=== PATIENT | male | born 1960 | race Caucasian/White ===

== ENCOUNTER 2017-10-16 06:16 | Inpatient (IN) ==
[2017-10-16 07:06] LABS: Hematocrit 38.1 % (39.0-51.0); Hemoglobin 13.5 gm/dL (13.0-17.0); Mean Corpuscular HGB Conc 35.6 % (32.0-36.0); Mean Corpuscular Hemoglobin 31.4 pg (27.0-34.0); Mean Corpuscular Volume 88.4 fL (80.0-100.0); Mean Platelet Volume 7.4 fL (7.0-11.0); Platelet Count 249 th/mm3 (150-450); Red Cell Distribution Width 12.8 % (11.6-17.2)
[2017-10-16 07:45] LABS: Alanine Aminotransferase 37 U/L (12-78); Alkaline Phosphatase 77 U/L (45-117); Anion Gap 13 meq/L (5-15); Aspartate Aminotransferase 22 U/L (15-37); Blood Urea Nitrogen 13 mg/dL (7-18); Calcium 8.4 mg/dL (8.5-10.1); Carbon Dioxide 21.9 meq/L (21.0-32.0); Chloride 98 meq/L (98-107); Glomerular Filtration Rate Greater Than 89 mL/min (>89); Glucose,Random 147 mg/dL (74-106); Sodium 133 meq/L (136-145); Total Protein 7.4 g/dL (6.4-8.2)
[2017-10-16 07:56] LABS: Potassium 2.9 meq/L (3.5-5.1)
[2017-10-16] MEDS ORDERED: Vancomycin Inj 1,000 MG in Sodium Chlor 0.9% Inj 250 ML IV.SIG ONE (08:35)
--- NOTE | 2017-10-16 08:40 | ED ---
HPI General Chief complaint: Skin/Abscess/Foreign Body Stated complaint: poss spider bite Time Seen by Provider: 10/16/17 08:18 History of Present Illness HPI narrative: this patient complains of pain and redness to his right leg. He was seen here 3 days ago for the same thing but it continues to worsen despite antibiotics. He has pain of moderate severity. He has been taking Keflex for 3 days. Pain is worse with movement. No alleviating factors. He is not sure if he has had any fever. Started to drain a bit of yellow fluid. It is spreading since he was seen before. Location: [facility] Severity: moderate Pain Consistency: constant Treatments prior to arrival: antibiotic Related Data Home Medications Medication Instructions Recorded Confirmed hydrocodone-acetaminophen [[place]] 1 tab PO Q4-6H PRN 10/13/17 10/16/17 labetalol 50 mg PO BID 10/13/17 10/16/17 melatonin 5 mg PO HS 10/13/17 10/16/17 milk thistle 200 mg PO DAILY 10/13/17 10/16/17 omeprazole 20 mg PO DAILY 10/13/17 10/16/17 amlodipine 10 mg PO DAILY 10/16/17 10/16/17 Previous Rx's Medication Instructions Recorded cephalexin 500 mg PO BID 7 Days #14 cap 10/13/17 Allergies Allergy/AdvReac Type Severity Reaction Status Date / Time No Known Allergies Allergy Verified 10/16/17 06:21 Review of Systems Except as stated in HPI: all other systems reviewed are negative PMFSH Medical History Medical History Cigarette smoker (Acute) Femur fracture (Acute) Femur fracture, left (Acute) GERD (gastroesophageal reflux disease) (Acute) HTN (hypertension) (Acute) Social History Social History Substance History: Past History Second Hand Smoke Exposure: Yes Smoking Status: Current every day smoker Tobacco Type: Cigarettes How Often Do You Have a Drink Containing Alcohol: 4 or more times a week Recent Travel in [facility] within the Last 8 Weeks: No Recent Out of Country Travel within the Last 8 Weeks: No Immunization History Tetanus Immunization: Unsure Hx Influenza Vaccine This Season: No Exam Narrative Exam Narrative: GENERAL: Well-nourished, well-developed patient in no apparent distress. SKIN: Focused skin assessment reveals no rash and nodules. Skin is Warm and dry. HEAD: Atraumatic. Normocephalic. EYES: Pupils equal and round. No scleral icterus. No injection or drainage. ENT: No nasal bleeding or discharge. Mucous membranes pink and moist. NECK: Trachea midline. No JVD. CARDIOVASCULAR: Regular rate and rhythm. No murmur appreciated. RESPIRATORY: No accessory muscle use. Clear to auscultation. Breath sounds equal bilaterally. GASTROINTESTINAL: Abdomen soft, non-tender, nondistended. Hepatic and splenic margins not palpable. MUSCULOSKELETAL: No obvious deformities. No clubbing. No cyanosis. No edema. He has erythema and warmth of the right leg distal to the knee on the medial aspect. Spreading toward the lateral side and has lymphangitis up toward the groin. There is an area of blistering with some yellow honey crusting. No active fluctuance or drainage. Good range of motion of the knee without discomfort. NEUROLOGICAL: Awake and alert. No obvious cranial nerve deficits. Motor grossly within normal limits. Normal speech. PSYCHIATRIC: Appropriate mood and affect; insight and judgment normal. Course Initial Documented Vital Signs Temperature 98.4 F 10/16/17 06:18 Pulse Rate 111 H 10/16/17 06:18 Respiratory Rate 18 10/16/17 06:18 Blood Pressure 136/86 10/16/17 06:18 Pulse Oximetry 99 10/16/17 06:18 Last Documented Vital Signs Temperature 98.5 F 10/16/17 11:30 Pulse Rate 97 H 10/16/17 11:30 Respiratory Rate 16 10/16/17 11:30 Blood Pressure 137/83 10/16/17 11:30 Pulse Oximetry 99 10/16/17 06:18 Medical Decision Making MDM Narrative Medical decision making narrative: I gave him 1 g IV vancomycin. I have ordered lab studies His infection is spreading and worsening despite oral antibiotics for 3 days. He will need inpatient admission for IV antibiotics to get a handle on this worsening infection as well as prevent transformation to septic knee joint. I do not have any clinical suspicion of septic joint at this time but he will be at risk to develop one if this does not get handled. Blood cultures were sent. Case reviewed with hospitalist who will admit for IV antibiotics. Patient does have some hyponatremia and hypokalemia. Differential Diagnosis Differential Diagnosis: Cellulitis, lymphangitis, septic knee Medical Records Medical records reviewed: Yes I reviewed the patient's medical records. Reviewed his visit from 3 days ago Lab Data Lab results reviewed: Yes I reviewed the patient's lab results. Result diagrams: 10/16/17 09:55 10/16/17 09:55 Lab Results 10/16/17 10/16/17 10/16/17 Range/Units 06:40 06:40 06:40 WBC 12.0 H (4.0-11.0) th/mm3 RBC 4.30 L (4.50-5.90) mil/mm3 Hgb 13.5 (13.0-17.0) gm/dL Hct 38.1 L (39.0-51.0) % MCV 88.4 (80.0-100.0) fL MCH 31.4 (27.0-34.0) pg MCHC 35.6 (32.0-36.0) % RDW 12.8 (11.6-17.2) % Plt Count 249 (150-450) th/mm3 MPV 7.4 (7.0-11.0) fL Neut % (Auto) (16.0-70.0) % Lymph % (Auto) (9.0-44.0) % [place] % (Auto) (0.0-8.0) % Eos % (Auto) (0.0-4.0) % Baso % (Auto) (0.0-2.0) % Neut # (Auto) (1.8-7.7) th/mm3 Lymph # (Auto) (1.0-4.8) th/mm3 [place] # (Auto) (0.0-0.9) th/mm3 Eos # (Auto) (0.0-0.4) th/mm3 Baso # (Auto) (0.0-0.2) th/mm3 WBC Differential Differential Comment Sodium 133 L (136-145) meq/L Potassium 2.9 L* (3.5-5.1) meq/L Chloride 98 (98-107) meq/L Carbon Dioxide 21.9 (21.0-32.0) meq/L Anion Gap 13 (5-15) meq/L BUN 13 (7-18) mg/dL Creatinine 0.86 (0.60-1.30) mg/dL Estimated GFR Greater than 89 (>89) mL/min Random Glucose 147 H (74-106) mg/dL Lactic Acid 1.2 (0.4-2.0) mmol/L Calcium 8.4 L (8.5-10.1) mg/dL Total Bilirubin 0.7 (0.2-1.0) mg/dL AST 22 (15-37) U/L ALT 37 (12-78) U/L Alkaline Phosphatase 77 (45-117) U/L Total Protein 7.4 (6.4-8.2) g/dL Albumin 3.0 L (3.4-5.0) g/dL 10/16/17 10/16/17 Range/Units 09:55 09:55 WBC 11.3 H (4.0-11.0) th/mm3 RBC 4.37 L (4.50-5.90) mil/mm3 Hgb 13.6 (13.0-17.0) gm/dL Hct 38.9 L (39.0-51.0) % MCV 89.0 (80.0-100.0) fL MCH 31.0 (27.0-34.0) pg MCHC 34.9 (32.0-36.0) % RDW 12.9 (11.6-17.2) % Plt Count 233 (150-450) th/mm3 MPV 7.9 (7.0-11.0) fL Neut % (Auto) 69.7 (16.0-70.0) % Lymph % (Auto) 17.0 (9.0-44.0) % [place] % (Auto) 12.1 H (0.0-8.0) % Eos % (Auto) 0.6 (0.0-4.0) % Baso % (Auto) 0.6 (0.0-2.0) % Neut # (Auto) 7.9 H (1.8-7.7) th/mm3 Lymph # (Auto) 1.9 (1.0-4.8) th/mm3 [place] # (Auto) 1.4 H (0.0-0.9) th/mm3 Eos # (Auto) 0.1 (0.0-0.4) th/mm3 Baso # (Auto) 0.1 (0.0-0.2) th/mm3 WBC Differential . Differential Comment Auto diff final Sodium 134 L (136-145) meq/L Potassium 3.0 L (3.5-5.1) meq/L Chloride 99 (98-107) meq/L Carbon Dioxide 23.3 (21.0-32.0) meq/L Anion Gap 12 (5-15) meq/L BUN 12 (7-18) mg/dL Creatinine 0.73 (0.60-1.30) mg/dL Estimated GFR Greater than 89 (>89) mL/min Random Glucose 109 H (74-106) mg/dL Lactic Acid (0.4-2.0) mmol/L Calcium 8.3 L (8.5-10.1) mg/dL Total Bilirubin (0.2-1.0) mg/dL AST (15-37) U/L ALT (12-78) U/L Alkaline Phosphatase (45-117) U/L Total Protein (6.4-8.2) g/dL Albumin (3.4-5.0) g/dL Discharge Plan Discharge Disposition Patient Disposition: 30 Still Patient Discharge Condition Condition: Stable Discharge Details Discharge Problem: Cellulitis Physicians Team ED Provider: Finesse Sanchez Primary Care Provider: Tete Buchanan Rxs /Orders / Referrals /Forms Prescriptions: No Action labetalol 50 mg PO BID RF: 0 omeprazole 20 mg PO DAILY RF: 0 melatonin 5 mg PO HS RF: 0 milk thistle 200 mg PO DAILY RF: 0 hydrocodone-acetaminophen [[place]] 5-325 mg Tablet 1 tab PO Q4-6H PRN (Reason: Pain) RF: 0 cephalexin 500 mg capsule 500 mg PO BID 7 Days Qty: 14 RF: 0 amlodipine 10 mg Tablet 10 mg PO DAILY RF: 0 Discharge Interventions Interventions: Vital Signs Last Done: 10/16/17 11:30 Status ED Status: With Doctor
[2017-10-16 10:34] LABS: Baso # (Auto) 0.1 th/mm3 (0.0-0.2); Baso % (Auto) 0.6 % (0.0-2.0); Eos # (Auto) 0.1 th/mm3 (0.0-0.4); Eos % (Auto) 0.6 % (0.0-4.0); Hematocrit 38.9 % (39.0-51.0); Hemoglobin 13.6 gm/dL (13.0-17.0); Lymph # (Auto) 1.9 th/mm3 (1.0-4.8); Mean Corpuscular HGB Conc 34.9 % (32.0-36.0); Mean Platelet Volume 7.9 fL (7.0-11.0); Mono # (Auto) 1.4 th/mm3 (0.0-0.9); Mono % (Auto) 12.1 % (0.0-8.0); Neut # (Auto) 7.9 th/mm3 (1.8-7.7); Neut % (Auto) 69.7 % (16.0-70.0); Platelet Count 233 th/mm3 (150-450); Red Blood Count 4.37 mil/mm3 (4.50-5.90); Red Cell Distribution Width 12.9 % (11.6-17.2); White Blood Count 11.3 th/mm3 (4.0-11.0)
[2017-10-16 11:12] LABS: Anion Gap 12 meq/L (5-15); Blood Urea Nitrogen 12 mg/dL (7-18); Calcium 8.3 mg/dL (8.5-10.1); Carbon Dioxide 23.3 meq/L (21.0-32.0); Chloride 99 meq/L (98-107); Glomerular Filtration Rate Greater Than 89 mL/min (>89); Glucose,Random 109 mg/dL (74-106); Sodium 134 meq/L (136-145)
[2017-10-16] MEDS ORDERED: Bisacodyl 10 MG Supp RECTAL PRN (12:06)
[2017-10-16] MEDS ORDERED: Acetaminophen 325 MG Tablet PO PRN (12:06)
[2017-10-16] MEDS ORDERED: Vancomycin Consult Pharmacy 1 EACH OTHER SCH (12:10)
[2017-10-16] MEDS: Sod Chloride 0.9% Inj 1,000 ML IV.CONT SCH ×2 (12:51→23:29)
[2017-10-16] MEDS: Vancomycin Inj 1,000 MG in Sodium Chlor 0.9% Inj 250 ML IV.SIG SCH (12:51)
[2017-10-16] MEDS: Enoxaparin Inj 40 MG/0.4 ML Syringe SQ SCH (12:52)
--- NOTE | 2017-10-16 15:28 | P.HPIM ---
History of Present Illness Primary Care Physician: Tete Buchanan MD History of Present Illness: The patient is a pleasant 57 yo male, with PMH of HTN, GERD who came initially for evaluation 3 days ago for cellulitis patient was discharged home with po antibiotics and took antibiotics for the past 3 days with no improvement. The patient complains of pain and redness to his right leg. He was seen here 3 days ago for the same thing but it continues to worsen despite antibiotics. He has pain of moderate severity. He has been taking Keflex for 3 days. Pain is worse with movement. No alleviating factors. He is not sure if he has had any fever. Started to drain a bit of yellow fluid. It is spreading since he was seen before. No cp, sob, palpitations. No cough. No n/v/d/c. No urinary complaints. Inpatient Certification: I certify that the inpatient services were ordered in accordance with Medicare regulations governing the order. This includes certification that hospital inpatient services are reasonable and necessary and in the case of services not specified as inpatient-only under 42 CFR 419.22(n), that they are appropriately provided as inpatient services in accordance to with the 2-midnight benchmark under 43 CFR 412.3(e) Estimated Total Length of Stay (Days): 3 Plans for Post Hospital Care: Home Review of Systems ROS reviewed and negative except as mentioned in HPI PMFSH - History History Provided By: Patient - Medical History Medical History: Medical History (Last Reviewed 10/16/17 @ 18:30 by Mariajose Vivar MD) Femur fracture, left (Acute) Cigarette smoker GERD (gastroesophageal reflux disease) HTN (hypertension) - Surgical History Surgical History: Surgical History (Last Updated 10/16/17 @ 18:30 by Mariajose Vivar MD) Femur fracture - Family History Family History: Family History (Last Reviewed 10/16/17 @ 18:29 by Mariajose Vivar MD) Other Family history of hypertension - Tobacco History Second Hand Smoke Exposure: Yes Tobacco Use In Past 30 Days: Yes Smoking Status: Current every day smoker Tobacco Type: Cigarettes - Alcohol History How Often Do You Have a Drink Containing Alcohol: 4 or more times a week - Substance Use History Substance History: Past History - Travel History Recent Travel in the [place] Within the Last 8 Weeks: No Recent Travel Out of the Country Within the Last 8 Weeks: No - Immunization History Tetanus Immunization: Unsure Hx Influenza Vaccine This Season: No Medications and Allergies Active Medications: Active Medications Acetaminophen (Tylenol) 650 mg PO Q4H PRN PRN Reason: Temp > 100.4 Hydrocodone Bitart/Acetaminophen ([place] 5/325) 1 tab PO Q4H PRN PRN Reason: PAIN SCALE 1 TO 10 Last Admin: 10/16/17 12:51 Dose: 1 tab Al Hydroxide/Mg Hydroxide (Milk Of Magnesia Liq) 30 ml PO Q12H PRN PRN Reason: Mild Constipation Amlodipine Besylate (Norvasc) 10 mg PO DAILY [facility] Bisacodyl (Dulcolax Supp) 10 mg RECTAL DAILY PRN PRN Reason: SEVERE CONSITIPATION Enoxaparin Sodium (Lovenox Inj) 40 mg SQ Q24H [facility] Last Admin: 10/16/17 12:52 Dose: 40 mg Sodium Chloride (Ns Inj) 1,000 mls @ 100 mls/hr IV.CONT .Q10H [facility] Last Admin: 10/16/17 12:51 Dose: 100 mls/hr Pharmacy Profile Note (Vancomycin Consult Pharmacy) 0 mls @ 0 mls/hr OTHER UNSCH [facility] Vancomycin HCl 1,000 mg/ (Sodium Chloride) 250 mls @ 200 mls/hr IV.SIG Q12H [facility] Last Infusion: 10/16/17 13:59 Dose: Infused Lactulose (Lactulose Liq) 30 ml PO DAILY PRN PRN Reason: SEVERE CONSITIPATION Metoclopramide HCl (Reglan Inj) 5 mg IV.PUSH Q6HR PRN; Protocol PRN Reason: NAUSEA OR VOMITING Non-Formulary Medication (Labetalol) 50 mg PO BID [facility] Non-Formulary Medication (Omeprazole) 20 mg PO DAILY [facility] Non-Formulary Medication (Melatonin) 5 mg PO HS [facility] Senna/Docusate Sodium (Adamaris-Colace) 1 tab PO BID [facility] Sennosides (Senokot) 17.2 mg PO Q12H PRN PRN Reason: Moderate Constipation Temazepam (Restoril) 15 mg PO HS PRN PRN Reason: INSOMNIA Allergies Allergy/AdvReac Type Severity Reaction Status Date / Time No Known Allergies Allergy Verified 10/16/17 06:21 Home Medications Medication Instructions Recorded Confirmed Type hydrocodone-acetaminophen [[place]] 1 tab PO Q4-6H PRN 10/13/17 10/16/17 History labetalol 50 mg PO BID 10/13/17 10/16/17 History melatonin 5 mg PO HS 10/13/17 10/16/17 History milk thistle 200 mg PO DAILY 10/13/17 10/16/17 History omeprazole 20 mg PO DAILY 10/13/17 10/16/17 History amlodipine 10 mg PO DAILY 10/16/17 10/16/17 History Exam Vital signs: Vital Signs 10/16/17 06:18 10/16/17 11:30 Temperature 98.4 F 98.5 F Pulse Rate 111 H 97 H Respiratory Rate 18 16 Blood Pressure 136/86 137/83 Pulse Oximetry 99 Intake & Output 10/15/17 10/16/17 10/16/17 18:59 06:59 18:59 Intake Total 250 / 250 Balance 250 / 250 Weight 79 kg Intake: IV 250 / 250 Vancomycin Inj 1,000 MG In NS 250 / 250 Inj 250 ML @ 200 mls/hr IV.SIG Q12H [facility] Rx#:[id number] Narrative: GENERAL: Pleasant 57 yo male, well nourished well developed, appears in nad. SKIN: Warm and dry focal except right leg with cellulitis as described below. HEAD: Atraumatic. Normocephalic. EYES: Pupils equal and round. No scleral icterus. No injection or drainage. ENT: No nasal bleeding or discharge. Mucous membranes pink and moist. NECK: Trachea midline. No JVD. CARDIOVASCULAR: Regular rate and rhythm. RESPIRATORY: No accessory muscle use. Clear to auscultation. Breath sounds equal bilaterally. GASTROINTESTINAL: Abdomen soft, non-tender, nondistended. Hepatic and splenic margins not palpable. MUSCULOSKELETAL: Right leg medial distal knee with erythema, edema and warmth extending to lateral side with lymphangitis toward the right groin. blistering with some yellow honey crusting. No active fluctuance or drainage. Neurovascular intact. No obvious deformities. Results - Labs CBC & Chem 7: 10/16/17 09:55 10/16/17 09:55 Labs: Short CBC 10/16/17 10/16/17 Range/Units 06:40 09:55 WBC 12.0 H 11.3 H (4.0-11.0) th/mm3 Hgb 13.5 13.6 (13.0-17.0) gm/dL Hct 38.1 L 38.9 L (39.0-51.0) % Plt Count 249 233 (150-450) th/mm3 BMP 10/16/17 10/16/17 06:40 09:55 Sodium 133 L 134 L Potassium 2.9 L* 3.0 L Chloride 98 99 Carbon Dioxide 21.9 23.3 BUN 13 12 Creatinine 0.86 0.73 Calcium 8.4 L 8.3 L Liver Function 10/16/17 Range/Units 06:40 Total Bilirubin 0.7 (0.2-1.0) mg/dL AST 22 (15-37) U/L ALT 37 (12-78) U/L Alkaline Phosphatase 77 (45-117) U/L Albumin 3.0 L (3.4-5.0) g/dL Caprini VTE Risk Assessment Caprini VTE Risk Assessment: Moderate/High Risk (score >= 2) Caprini Risk Assessment Model: Point Value = 1 Point Value = 2 Point Value = 3 Point Value = 5 Age 41-60 Minor surgery BMI > 25 kg/m2 Swollen legs Varicose veins or History of unexplained or recurrent spontaneous Oral contraceptives or hormone replacement Sepsis (< 1 month) Serious lung disease, including pneumonia (< 1 month) Abnormal pulmonary function Acute myocardial infarction Congestive heart failure (< 1 month) History of inflammatory bowel disease Medical patient at bed rest Age 61-74 Arthroscopic surgery Major open surgery (> 45 min) Laparoscopic surgery (> 45 min) Malignancy Confined to bed (> 72 hours) Immobilizing plaster cast Central venous access Age >= 75 History of VTE Family history of VTE Factor V Leiden Prothrombin [id number] Lupus anticoagulant Anticardiolipin antibodies Elevated serum homocysteine Heparin-induced thrombocytopenia Other congenital or acquired thrombophilia Stroke (< 1 month) Elective arthroplasty Hip, pelvis, or leg fracture Acute spinal cord injury (< 1 month) Prophylaxis Regimen: Total Risk Factor Score Risk Level Prophylaxis Regimen 0-1 Low Early ambulation 2 Moderate Order ONE of the following: *Sequential Compression Device (SCD) *Heparin 5000 units SQ BID 3-4 Higher Order ONE of the following medications: *Heparin 5000 units SQ TID *Enoxaparin/Lovenox 40 mg SQ daily (WT < 150 kg, CrCl > 30 mL/min) *Enoxaparin/Lovenox 30 mg SQ daily (WT < 150 kg, CrCl > 10-29 mL/min) *Enoxaparin/Lovenox 30 mg SQ BID (WT < 150 kg, CrCl > 30 mL/min) AND/OR *Sequential Compression Device (SCD) 5 or more Highest Order ONE of the following medications: *Heparin 5000 units SQ TID (Preferred with Epidurals) *Enoxaparin/Lovenox 40 mg SQ daily (WT < 150 kg, CrCl > 30 mL/min) *Enoxaparin/Lovenox 30 mg SQ daily (WT < 150 kg, CrCl > 10-29 mL/min) *Enoxaparin/Lovenox 30 mg SQ BID (WT < 150 kg, CrCl > 30 mL/min) AND *Sequential Compression Device (SCD) Assessment and Plan - Plan Cellulitis, failed outpatient treatment Check blood cx, wound cultures if obtainable. Started in IV vancomycin harmacy for levels and monitor kidney function. Also start gentle IVF Insomnia continue melatonin HTN Continue amlodipine 10 mg daily, labetalol 50 mg po bid. Monitor VS and adjust meds as tolerated GERD continue omeprazole DVT ppx lovenox NEUROLOGICAL: Awake and alert. No obvious cranial nerve deficits. Motor grossly within normal limits. Five out of 5 muscle strength in the arms and legs. Normal speech. PSYCHIATRIC: Appropriate mood and affect; insight and judgment normal.
[2017-10-16] MEDS ORDERED: MELATONIN 5 MG PO SCH (21:00)
[2017-10-16] MEDS ORDERED: LABETALOL PO SCH (21:00)
[2017-10-16] MEDS: Temazepam 15 MG Capsule PO PRN (23:29)
[2017-10-16] MEDS: Senna/Docusate Sodium 8.6/50 MG Tablet PO SCH (23:29)
[2017-10-17] MEDS: Vancomycin Inj 1,000 MG in Sodium Chlor 0.9% Inj 250 ML IV.SIG SCH ×2 (00:43→12:58)
[2017-10-17] MEDS: amLODIPine 10 MG Tablet PO SCH (09:35)
[2017-10-17] MEDS: Senna/Docusate Sodium 8.6/50 MG Tablet PO SCH ×2 (09:35→21:11)
[2017-10-17] MEDS: Sod Chloride 0.9% Inj 1,000 ML IV.CONT SCH (10:32)
[2017-10-17 11:37] LABS: Baso # (Auto) 0.1 th/mm3 (0.0-0.2); Eos # (Auto) 0.1 th/mm3 (0.0-0.4); Eos % (Auto) 1.3 % (0.0-4.0); Hemoglobin 14.1 gm/dL (13.0-17.0); Lymph # (Auto) 1.2 th/mm3 (1.0-4.8); Lymph % (Auto) 18.5 % (9.0-44.0); Mean Corpuscular HGB Conc 35.2 % (32.0-36.0); Mean Corpuscular Hemoglobin 31.2 pg (27.0-34.0); Mean Corpuscular Volume 88.6 fL (80.0-100.0); Mean Platelet Volume 8.2 fL (7.0-11.0); Mono # (Auto) 0.6 th/mm3 (0.0-0.9); Mono % (Auto) 8.9 % (0.0-8.0); Neut # (Auto) 4.6 th/mm3 (1.8-7.7); Neut % (Auto) 70.3 % (16.0-70.0); Platelet Count 264 th/mm3 (150-450); Red Blood Count 4.51 mil/mm3 (4.50-5.90); Red Cell Distribution Width 12.8 % (11.6-17.2); White Blood Count 6.5 th/mm3 (4.0-11.0)
[2017-10-17 11:59] LABS: Anion Gap 12 meq/L (5-15); Blood Urea Nitrogen 10 mg/dL (7-18); Calcium 8.7 mg/dL (8.5-10.1); Carbon Dioxide 22.5 meq/L (21.0-32.0); Chloride 106 meq/L (98-107); Glomerular Filtration Rate Greater Than 89 mL/min (>89); Glucose,Random 149 mg/dL (74-106); Potassium 3.1 meq/L (3.5-5.1); Sodium 140 meq/L (136-145)
[2017-10-17] MEDS: Enoxaparin Inj 40 MG/0.4 ML Syringe SQ SCH (12:58)
--- NOTE | 2017-10-17 16:07 | P.PNIM ---
Subjective Interval history: Right knee infection swelling, redness, drainage are still present but are overall significantly improved. No fever or chills. Patient's thinks he might have been bit by a spider. Physical Exam Vital signs: Vital Signs 10/16/17 16:52 10/16/17 20:00 10/17/17 00:29 Temperature 98.2 F 98.6 F 97.5 F L Pulse Rate 97 H 85 84 Respiratory Rate 18 18 20 Blood Pressure 119/77 128/80 152/90 H Pulse Oximetry 96 98 100 10/17/17 04:00 10/17/17 08:00 10/17/17 11:33 Temperature 97.9 F 98.1 F 98.1 F Pulse Rate 78 72 76 Respiratory Rate 18 16 18 Blood Pressure 128/81 132/84 134/80 Pulse Oximetry 97 98 100 10/17/17 11:36 Temperature Pulse Rate Respiratory Rate 17 Blood Pressure Pulse Oximetry Intake & Output 10/16/17 10/17/17 10/17/17 18:59 06:59 18:59 Intake Total 250 / 250 1000 / 1000 1500 / 1500 Balance 250 / 250 1000 / 1000 1500 / 1500 Weight 166 lb 14.239 oz Intake: IV 250 / 250 1000 / 1000 1500 / 1500 NS Inj 1,000 ML @ 100 mls/hr IV 1000 / 1000 1000 / 1000 .CONT .Q10H [facility] Rx#:[id number] Vancomycin Inj 1,000 MG In NS 250 / 250 500 / 500 Inj 250 ML @ 200 mls/hr IV.SIG Q12H [facility] Rx#:[id number] Other: # Voids 2 Narrative: GENERAL: Well-developed well-nourished. In no acute distress. SKIN: Right leg medial knee with erythema and warmth extending to lateral side with improving lymphangitis toward the right groin. Blistering with some yellow honey crusting. No active fluctuance or drainage. HEENT: Normocephalic. Pupils equal and round. Mucous membranes pink and moist. CARDIOVASCULAR: Regular rate and rhythm. No murmur appreciated. RESPIRATORY: No accessory muscle use. Clear to auscultation. Breath sounds equal bilaterally. GASTROINTESTINAL: Abdomen soft, non-tender, nondistended. Bowel sounds x4. MUSCULOSKELETAL: No edema. Full active ROM right knee. NEUROLOGICAL: Awake and alert. Moves upper and lower extremities spontaneously. Normal speech. PSYCHIATRIC: Appropriate mood and affect; insight and judgment normal. Results - Labs CBC & Chem 7: 10/17/17 09:47 10/17/17 09:47 Laboratory Results - last 24 hr 10/17/17 10/17/17 09:47 09:47 WBC 6.5 RBC 4.51 Hgb 14.1 Hct 40.0 MCV 88.6 MCH 31.2 MCHC 35.2 RDW 12.8 Plt Count 264 MPV 8.2 Neut % (Auto) 70.3 H Lymph % (Auto) 18.5 [place] % (Auto) 8.9 H Eos % (Auto) 1.3 Baso % (Auto) 1.0 Neut # (Auto) 4.6 Lymph # (Auto) 1.2 [place] # (Auto) 0.6 Eos # (Auto) 0.1 Baso # (Auto) 0.1 WBC Differential . Differential Comment Auto diff final Sodium 140 Potassium 3.1 L Chloride 106 Carbon Dioxide 22.5 Anion Gap 12 BUN 10 Creatinine 0.75 Estimated GFR Greater than 89 Random Glucose 149 H Calcium 8.7 Microbiology 10/16/17 06:30 Blood - Peripheral Aerobic Blood Culture - Preliminary No growth in 1 day 10/16/17 06:30 Blood - Peripheral Anaerobic Blood Culture - Preliminary No growth in 1 day 10/16/17 06:46 Blood - Peripheral Aerobic Blood Culture - Preliminary No growth in 1 day 10/16/17 06:46 Blood - Peripheral Anaerobic Blood Culture - Preliminary No growth in 1 day Assessment and Plan - Plan Cellulitis, failed outpatient treatment with Keflex Afebrile. Blood cultures negative to date. Wound culture wasn't obtainable. Continue on IV vancomycin, pharmacy for levels and monitor kidney function. Possible transition to oral antibiotic in 12 days, would ensure a good MRSA coverage. Insomnia continue melatonin Hypokalemia replenish orally HTN fairly well controlled. Continue amlodipine 10 mg daily, labetalol 50 mg po bid. Monitor VS and adjust meds as tolerated GERD continue omeprazole DVT ppx lovenox Discharge Planning: Likely discharge in 12 days on oral antibiotics pending further clinical improvement.
[2017-10-17] MEDS: Pantoprazole Sodium 20 MG DR Tablet PO SCH (16:16)
[2017-10-17] MEDS ORDERED: Melatonin 5 MG Tablet PO SCH (21:00)
[2017-10-17] MEDS: Labetalol 100 MG Tablet PO SCH (21:11)
[2017-10-17] MEDS: Temazepam 15 MG Capsule PO PRN (22:55)
[2017-10-18] MEDS ORDERED: Pharmacy Ordered Lab Info OTHER ONE (00:45)
[2017-10-18] MEDS: Vancomycin Inj 1,000 MG in Sodium Chlor 0.9% Inj 250 ML IV.SIG SCH (01:04)
[2017-10-18] MEDS: Pantoprazole Sodium 20 MG DR Tablet PO SCH (09:06)
[2017-10-18] MEDS: Labetalol 100 MG Tablet PO SCH (09:06)
[2017-10-18] MEDS: Senna/Docusate Sodium 8.6/50 MG Tablet PO SCH (09:07)
[2017-10-18] MEDS: amLODIPine 10 MG Tablet PO SCH (09:07)
--- NOTE | 2017-10-18 11:24 | P.PNIM ---
Subjective Interval history: Right knee cellulitis improved, less tender, less erythematous, no discharge. Afebrile. Leukocytosis resolved. Physical Exam Vital signs: Vital Signs 10/17/17 11:33 10/17/17 11:36 10/17/17 16:00 Temperature 98.1 F 98.2 F Pulse Rate 76 82 Respiratory Rate 18 17 18 Blood Pressure 134/80 127/86 Pulse Oximetry 100 100 10/17/17 20:00 10/18/17 00:00 10/18/17 04:00 Temperature 98.4 F 98.7 F 97.6 F Pulse Rate 85 77 72 Respiratory Rate 18 18 18 Blood Pressure 124/81 134/83 138/81 Pulse Oximetry 96 97 96 10/18/17 08:00 Temperature 98.2 F Pulse Rate 73 Respiratory Rate Blood Pressure 151/99 H Pulse Oximetry 96 Intake & Output 10/17/17 10/18/17 10/18/17 18:59 06:59 18:59 Intake Total 2100 / 2100 Output Total 750 / 750 Balance 2100 / 2100 -750 / -750 Weight 74.9 kg Intake: IV 2100 / 2100 NS Inj 1,000 ML @ 100 mls/hr IV 1600 / 1600 .CONT .Q10H [facility] Rx#:[id number] Vancomycin Inj 1,000 MG In NS 500 / 500 Inj 250 ML @ 200 mls/hr IV.SIG Q12H [facility] Rx#:[id number] Output: Urine 750 / 750 Other: Date of Last Bowel Movement 10/17/17 Narrative: GENERAL: Well-developed well-nourished. In no acute distress. SKIN: Right leg medial knee with erythema and warmth improved, lymphangitis improving. No discharge. No fluctuance. CARDIOVASCULAR: Regular rate and rhythm. No murmur appreciated. RESPIRATORY: No accessory muscle use. Clear to auscultation. Breath sounds equal bilaterally. GASTROINTESTINAL: Abdomen soft, non-tender, nondistended. Bowel sounds x4. NEUROLOGICAL: Awake and alert. Moves upper and lower extremities spontaneously. Normal speech. Results - Labs CBC & Chem 7: 10/17/17 09:47 10/17/17 09:47 Laboratory Results - last 24 hr 10/17/17 10/17/17 10/18/17 09:47 09:47 00:58 WBC 6.5 RBC 4.51 Hgb 14.1 Hct 40.0 MCV 88.6 MCH 31.2 MCHC 35.2 RDW 12.8 Plt Count 264 MPV 8.2 Neut % (Auto) 70.3 H Lymph % (Auto) 18.5 [place] % (Auto) 8.9 H Eos % (Auto) 1.3 Baso % (Auto) 1.0 Neut # (Auto) 4.6 Lymph # (Auto) 1.2 [place] # (Auto) 0.6 Eos # (Auto) 0.1 Baso # (Auto) 0.1 WBC Differential . Differential Comment Auto diff final Sodium 140 Potassium 3.1 L Chloride 106 Carbon Dioxide 22.5 Anion Gap 12 BUN 10 Creatinine 0.75 Estimated GFR Greater than 89 Random Glucose 149 H Calcium 8.7 Vancomycin Trough 5.7 Microbiology 10/16/17 06:30 Blood - Peripheral Aerobic Blood Culture - Preliminary No growth in 2 days 10/16/17 06:30 Blood - Peripheral Anaerobic Blood Culture - Preliminary No growth in 2 days 10/16/17 06:46 Blood - Peripheral Aerobic Blood Culture - Preliminary No growth in 2 days 10/16/17 06:46 Blood - Peripheral Anaerobic Blood Culture - Preliminary No growth in 2 days Assessment and Plan - Plan Cellulitis, failed outpatient treatment with Keflex Afebrile. Blood cultures negative to date. Wound culture wasn't obtainable. Received 2 days of vancomycin, switch to clindamycin and Bactrim, august discharge today. Insomnia continue melatonin Hypokalemia replenish orally HTN fairly well controlled. Continue amlodipine 10 mg daily, labetalol 50 mg po bid. Monitor VS and adjust meds as tolerated GERD continue omeprazole DVT ppx lovenox Discharge Planning: Discharge home today
[2017-10-18] MEDS: Enoxaparin Inj 40 MG/0.4 ML Syringe SQ SCH (12:30)
[2017-10-18] MEDS ORDERED: Vancomycin Inj 1,500 MG in Sodium Chlor 0.9% Inj 500 ML IV.SIG SCH (13:00)
--- NOTE | 2017-10-18 13:12 | P.DS ---
Date of admission: 10/16/17 12:55 Primary care physician: Tete Buchanan MD Brief History from admission: The patient is a pleasant 57 yo male, with PMH of HTN, GERD who came initially for evaluation 3 days ago for cellulitis patient was discharged home with po antibiotics and took antibiotics for the past 3 days with no improvement. The patient complains of pain and redness to his right leg. He was seen here 3 days ago for the same thing but it continues to worsen despite antibiotics. He has pain of moderate severity. He has been taking Keflex for 3 days. Pain is worse with movement. No alleviating factors. He is not sure if he has had any fever. Started to drain a bit of yellow fluid. It is spreading since he was seen before. No cp, sob, palpitations. No cough. No n/v/d/c. No urinary complaints. DS: Diagnosis - Discharge Diagnosis (1) Cellulitis Status: Acute DS: Medications - Discharge Medications Prescriptions: clindamycin HCl [Cleocin HCl] 300 mg PO TID #21 cap sulfamethoxazole-trimethoprim [Bactrim DS] 1 tab PO Q12H #12 tab DS: Summary Hospital Course: This is a 57-year-old male presenting with right knee cellulitis after failed outpatient treatment with Keflex. Patient found to have leukocytosis but no sepsis, start vancomycin intravenously. After a few days, leukocytosis improved , right knee cellulitis improved. Patient will be switched to Bactrim and clindamycin to finish 1 week of treatment. All other medical issues including hypertension remained stable. - Time Spent with Patient Total time spent providing and/or coordinating discharge services: Greater than 30 minutes - Quality: VTE Deep Vein Thrombosis/Pulmonary Embolism Present on Admission: No Exam Vital signs: Vital Signs 10/17/17 16:00 10/17/17 20:00 10/18/17 00:00 Temperature 98.2 F 98.4 F 98.7 F Pulse Rate 82 85 77 Respiratory Rate 18 18 18 Blood Pressure 127/86 124/81 134/83 Pulse Oximetry 100 96 97 10/18/17 04:00 10/18/17 08:00 Temperature 97.6 F 98.2 F Pulse Rate 72 73 Respiratory Rate 18 Blood Pressure 138/81 151/99 H Pulse Oximetry 96 96 Intake & Output 10/17/17 10/18/17 10/18/17 18:59 06:59 18:59 Intake Total 2099 / 2099 Output Total 750 / 750 Balance 2099 -750 / -750 Weight 74.9 kg Intake: IV 2100 / 2100 NS Inj 1,000 ML @ 100 mls/hr IV 1600 / 1600 .CONT .Q10H [facility] Rx#:[id number] Vancomycin Inj 1,000 MG In NS 500 / 500 Inj 250 ML @ 200 mls/hr IV.SIG Q12H [facility] Rx#:[id number] Output: Urine 750 / 750 Other: Date of Last Bowel Movement 10/17/17 Narrative: GENERAL: Well-developed well-nourished. In no acute distress. SKIN: Right leg medial knee with erythema and warmth improved, lymphangitis improving. No discharge. No fluctuance. CARDIOVASCULAR: Regular rate and rhythm. No murmur appreciated. RESPIRATORY: No accessory muscle use. Clear to auscultation. Breath sounds equal bilaterally. GASTROINTESTINAL: Abdomen soft, non-tender, nondistended. Bowel sounds x4. NEUROLOGICAL: Awake and alert. Moves upper and lower extremities spontaneously. Normal speech. Results Procedures completed during hospitalization: None Labs on day of discharge: Labs from last 24 hours 10/18/17 00:58 Vancomycin Trough 5.7 Preliminary micro results at discharge 10/16/17 06:30 Aerobic Blood Culture - Preliminary Blood - Peripheral No growth in 2 days Anaerobic Blood Culture - Preliminary No growth in 2 days 10/16/17 06:46 Aerobic Blood Culture - Preliminary Blood - Peripheral No growth in 2 days Anaerobic Blood Culture - Preliminary No growth in 2 days Discharge Plan - Discharge Disposition Patient Disposition: 01 Discharge Home - Discharge Condition Condition: Stable - Discharge Order Discharge Orders: Discharge Order (Routine); Ordered 10/18/17 Ordered By: Lavelle Carpenter - Discharge Details Anticipated Discharge Date: 10/18/17 - Physicians Team Primary Care Provider: Tete Buchanan Attending Provider: Lavelle Carpenter
[2017-10-20] MEDS ORDERED: Pharmacy Ordered Lab Info OTHER ONE (00:45)
== END 2017-10-18 17:54 | disposition home or self-care (01) ==
LOC: NEPC 06:16 → NEDA 12:55 → N05 16:28
PROVIDERS: ADMIT Hospitalist; ATTEND Hospitalist